=== PATIENT | female | born 2000 | race Caucasian/White ===

== ENCOUNTER 2021-10-15 13:21 | Day surgery (SDC) | payer OTHER ==
[2021-10-15 13:46] VITALS: BMI 35.7
[2021-10-15] MEDS ORDERED: hydrALAZINE 20 MG/ML VIAL SLOW IVP PRN (14:36)
== END 2021-10-15 14:37 | disposition home or self-care (01) ==
LOC: CSHLD/OP 13:21
PROVIDERS: ATTEND Obstetrics & Gynecology
DX: O26.853 Spotting complicating pregnancy, third trimester (principal); Z3A.36 36 weeks gestation of pregnancy
CPT/HCPCS: 99282